=== PATIENT | male | born 1980 | race Caucasian/White ===

== ENCOUNTER 2017-11-14 16:35 | Emergency (ER) | payer OTHER, SELFPAY ==
[2017-11-14 16:37] VITALS: BP 129/91; PULSE 93; RESP 17; TEMP 37.6; O2SAT 96; BMI 27.8
[2017-11-14 16:45] LABS: Bedside Glucose 88 mg/dL (70-110)
[2017-11-14 17:24] LABS: Absolute Lymphocyte Count 2.12 X10^3/ul (0.83-4.51); Absolute Neutrophil Count 6.6 X10^3/uL (2.0-7.7); Basophil# 0.05 X10^3/uL; Basophil% 0.5 % (0-1); Hematocrit 45.8 % (40-54); Hemoglobin 16.4 g/dl (13.0-16.5); Lymphocyte # 2.12 X10^3/ul (4.0); Lymphocyte % 22.1 % (19-41); Mean Corp Hgb Conc 35.8 g/gl (32-36); Mean Corpuscular Hgb 31.8 pg (27.0-32.0); Mean Corpuscular Volume 88.8 fL (80-94); Mean Platelet Vol. 10.8 fl (6.2-12.0); Monocyte# 0.76 X10^3/uL; Monocyte% 7.9 % (0-10); Neutrophil # 6.55 X10^3/uL (2.7-7.7); Neutrophil % 68.3 % (47-70); Platelet Count 265 K/mm3 (150-450); RBC Distribution Width CV 13.2 % (11.6-14.6); RBC Distribution Width SD 42.5 fl (35.1-43.9); Red Blood Count 5.16 M/mm3 (4.6-6.2); White Blood Count 9.6 K/mm3 (4.4-11.0)
[2017-11-14 17:25] LABS: POSITIVE COUNT NO; POSITIVE DIFFERENTIAL NO; POSITIVE MORPHOLOGY NO
[2017-11-14 17:38] LABS: ALB/GLOB Ratio 1.1 RATIO (0.9-2.4); AST(SGOT) 19 U/L (15-37); Alanine Aminotransfer ALT/SGPT 39 U/L (16-61); Alkaline Phosphatase 112 U/L (45-117); Anion Gap 7 (5-15); BUN 13 mg/dL (7-18); BUN/Creat Ratio 12.3 RATIO (10-20); Calcium,Total 8.5 mg/dL (8.5-10.1); Chloride 106 mmol/L (98-107); Creatinine, Serum 1.06 mg/dL (0.70-1.30); EST Glomerular Filtration Rate 83 mL/min (>60); Est Glom Filt Rate - Afr Amer 100 mL/min (>60); Estimated Creatinine Clearance 91.42 ml/min; Globulin 3.5 g/dL (2.2-4.2); Glucose 95 mg/dL (74-106); Potassium 4.1 mmol/L (3.5-5.1); Protein, Total 7.5 g/dL (6.4-8.2); Sodium Level 142 mmol/L (136-145)
--- NOTE | 2017-11-14 17:56 | ED.VISSUMM ---
- ER Visit Summary Date of Service: 11/14/17 Chief Complaint: Per triage patient complains of dizziness and jitteriness. History of Present Illness: The patient is a 37 M who presents with dizziness. Patient's definition of dizziness is feeling jittery and difficulty focusing. This is been going on for weeks to days. He states he has worked out every day consecutively for 2 years. He took this week off. He is on no herbal supplements. He states he is not taking any anabolic steroids. He does admit to 4-5 monster drinks a day. He does report polyuria polydipsia and weight loss. There is no family history of diabetes. He denies headache, visual, ocular auditory symptoms. Denies trouble speech or swallowing. He denies paresthesia, anesthesia motor weakness upper lower extremity's. He denies problems with walking, balance or perception. Physical Examination: Vital signs reveal slight elevation blood pressure. Head is atraumatic normocephalic. Pupils are equal round reactive. Extraocular muscles are intact. Funduscopic exam reveals normal cup-to-disc ratio with no papilledema TMs are pearly white with landmarks noted. Nares patent with no drainage. Posterior pharynx without erythema or exudate. Uvula is midline. There is no dysphonia or dysphasia. Trachea is midline. There is no stridor with auscultation of the neck. Heart is regular without murmur, gallop or rub. S1 and S2 are normal. Lungs are clear to auscultation with good movement of air bilaterally. Patient is alert and oriented ?3. Motor is 5 over 5. Sensory is intact. DTRs are symmetric with no clonus or Babinski sign. Cranial 2 through 12 are intact. Cerebellar testing is normal. Dermatologic exam is normal. Test Results: CBC and CMP are normal. Emergency Department Course and Treatment: To evaluate patient's vague symptoms CBC was obtained to evaluate for anemia, leukemia. CMP was obtained to evaluate electrolytes, kidney function, albumin for nutritional status and alk phos may elevate liver disease or abnormality the bone. Treatment Plan: Referral to PCP for further evaluation and testing Disposition: Discharged to home Impression: Difficulty concentrating and jitteriness of unknown etiology This note was generated with [employer] software. It may contain incorrect words, spelling, and punctuation that were not noted in review of the chart prior to signing ED Disposition - Plan for ED Patient: Disposition: Home or Assisted Living Chief Complaint: Dizziness Instructions: ED Dizziness [facility] Referrals: Brandon Calloway III, MD [Primary Care Provider] - 1 Week
[2017-11-14 18:13] VITALS: PULSE 92; RESP 16; O2SAT 98
== END 2017-11-14 17:00 | disposition home or self-care (01) ==
PROVIDERS: Emergency Provider Emergency Medicine; Family Provider Family Medicine; PCP Family Medicine
DX: R42 Dizziness and giddiness (principal)
CPT/HCPCS: 80053; 82962; 85025; 99283; A4216

== ENCOUNTER 2018-03-10 00:49 | Emergency (ER) | payer OTHER, SELFPAY ==
[2018-03-10 00:50] VITALS: BP 153/91; PULSE 96; RESP 18; TEMP 36.7; O2SAT 99; BMI 28.0
--- NOTE | 2018-03-10 01:03 | RAD_ITS ---
STUDY: X-RAY - RIGHT HAND REASON FOR EXAM: Male, 37 years old. Patient states that he has a knot in the area of the proximal fourth and fifth metacarpals that cuts off blood flow to the ring finger. States that he had an episode in which the ring finger became white and cold. States this happened a couple weeks ago as well. No known injury. TECHNIQUE: 3 view(s) of the hand. COMPARISON: None. FINDINGS: Normal radiocarpal articulation. Normal distal radioulnar joint. Normal visualized carpal bones. Normal carpal articulations Normal carpometacarpal articulation of the thumb. Normal second through fifth carpometacarpal joints. Normal metacarpi. Normal metacarpophalangeal joint of the thumb. Normal interphalangeal joint of the thumb. Normal proximal and distal phalanges of the thumb. Normal metacarpophalangeal joints of the second through fifth fingers. Normal proximal and distal interphalangeal joints of the second through fifth fingers. Normal phalanges of the second through fifth fingers. As seen on lateral view, there is focal posterior soft tissue thickening overlying the metacarpal heads, possibly corresponding to the abnormality described in the patient's complaint. RAD/Hand Min 3 Views IMPRESSION: No demonstrated fracture, dislocation, or destructive osseous lesion. Electronically Signed: Deniz Andrews MD at 1:42 EDT , Service support ,
--- NOTE | 2018-03-10 01:54 | ED.VISSUMM ---
- ER Visit Summary Date of Service: 03/10/18 Chief Complaint: [Right hand pain] History of Present Illness: The patient is a 37 M [presents to the emergency room right hand pain that started 2 weeks ago.] Patient denies any trauma. Patient complains of pain over the hyperthenar eminence and feels like there is grinding over the area and it feels like there is a lump in this area. Patient states that intermittently he has had episodes where his ring finger turns white and he loses blood flow to the digit. Today the symptoms lasted about 45 minutes. Patient has never had issues like this before. Physical Examination: [HEENT-PERRLA, EOMI. Cranial nerves II through XII grossly intact. TMs clear. Mucous membranes moist. No adenopathy. Cardiovascular-regular rate and rhythm without murmur or ectopy Lungs-clear to auscultation, chest wall stable without crepitus or subcu emphysema Abdomen-normoactive bowel sounds, soft, nontender, no rebound or rigidity, no peritoneal signs. Extremities-intact ?4, normal range of motion, normal pulses, atraumatic]. Right hand-patient has tenderness over the hyperthenar eminence of the hand. I do not appreciate any soft tissue swellings or abnormal masses. Patient has normal range of motion of all digits. Patient has normal cap refill of all digits at this time. Test Results: [X-ray of the right hand was read as normal.] Emergency Department Course and Treatment: [This point etiology of his pain is unclear. I suspect the reason for his blanching of the finger and decreased cap refill may be related to arterial spasm.] Treatment Plan: [Patient advised use ibuprofen for discomfort. Patient will be referred to orthopedics for follow-up.] Disposition: [Discharged home in stable condition] Impression: [Right hand pain-etiology uncertain] This note was generated with [employer] dictation software. It may contain incorrect words, spelling, and punctuation that were not noted in review of the chart prior to signing ED Disposition - Plan for ED Patient: Chief Complaint: Upper Extremity Injury Referrals: Care Physician,No Primary [Primary Care Provider] -
--- NOTE | 2018-03-10 01:58 | ED.DCSUM_ITS ---
- ER Visit Summary Date of Service: 03/10/18 Chief Complaint: [Right hand pain] History of Present Illness: The patient is a 37 M [presents to the emergency room right hand pain that started 2 weeks ago.] Patient denies any trauma. Patient complains of pain over the hyperthenar eminence and feels like there is grinding over the area and it feels like there is a lump in this area. Patient states that intermittently he has had episodes where his ring finger turns white and he loses blood flow to the digit. Today the symptoms lasted about 45 minutes. Patient has never had issues like this before. Physical Examination: [HEENT-PERRLA, EOMI. Cranial nerves II through XII grossl y intact. TMs clear. Mucous membranes moist. No adenopathy. Cardiovascular-regular rate and rhythm without murmur or ectopy Lungs-clear to auscultation, chest wall stable without crepitus or subcu emphysema Abdomen-normoactive bowel sounds, soft, nontender, no rebound or rigidity, no peritoneal signs. Extremities-intact ?4, normal range of motion, normal pulses, atraumatic]. Right hand-patient has tenderness over the hyperthenar eminence of the hand. I do not appreciate any soft tissue swellings or abnormal masses. Patient has normal range of motion of all digits. Patient has normal cap refill of all digits at this time. Test Results: [X-ray of the right hand was read as normal.] Emergency Department Course and Treatment: [This point etiology of his pain is unclear. I suspect the reason for his blanching of the finger and decreased cap refill may be related to arterial spasm.] Treatment Plan: [Patient advised use ibuprofen for discomfort. Patient will be referred to orthopedics for follow-up.] Disposition: [Discharged home in stable condition] Impression: [Right hand pain-etiology uncertain] This note was generated with [employer] dictation software. It may contain incorrect words, spelling, and punctuation that were not noted in review of the chart prior to signing ED Disposition - Plan for ED Patient: Chief Complaint: Upper Extremity Injury Referrals: Care Physician,No Primary [Primary Care Provider] -
--- NOTE | 2018-03-10 01:58 | ED.DEP ---
ED Disposition - Plan for ED Patient: Chief Complaint: Upper Extremity Injury Prescriptions: Naproxen [Naprosyn] 500 mg PO BID PRN #20 tab Referrals: Care Physician,No Primary [Primary Care Provider] - Corazon Mancini DO [STAFF PHYSICIAN] - 3-5 Days Additional Instructions: See orthopedic doctor for follow up[. Reason for hand pain is not clear. I suspect you may have arterial spasm causing transient lack of blood flow to your ring finger.
[2018-03-10 02:03] VITALS: BP 155/96; PULSE 75; RESP 17; O2SAT 99
== END 2018-03-10 02:08 | disposition home or self-care (01) ==
LOC: ED 01:10
PROVIDERS: Emergency Provider Emergency Medicine
DX: M79.641 Pain in right hand (principal); Z72.0 Tobacco use
CPT/HCPCS: 73130; 99282

== ENCOUNTER 2018-08-21 07:06 | Emergency (ER) | payer OTHER, SELFPAY ==
[2018-08-21 07:07] VITALS: BP 155/89; PULSE 86; RESP 16; TEMP 36.7; O2SAT 98; BMI 26.6
--- NOTE | 2018-08-21 07:28 | ED.DCSUM_ITS ---
History of Present Illness Chief Complaint: Lower Extremity Injury Detail of Chief Complaint: Rash feet and pallor right ring finger Informant: Patient Onset: Yesterday - Rash that is erythematous and painful, Month(s) - Pallor right finger when cold outside Context: - - Read narrative Timing: Continuous - With regards to the rash, Intermittent - With regards to the right ring finger Quality: Read narrative Location: Read narrative Current Severity: Moderate - Read narrative Maximum Severity: Severe - Read narrative Worsened by: Ring finger exposure to cold, feet read narrative Relieved by: Ring finger warmth, heat nothing Associated Symptoms: Patient does report increased urination and thirst. Narrative: Patient is a 38-year-old healthy male with no significant past medical history who has 2 complaints. First complaint and reason he presents to the emergency department is rash involving his feet. He wears protective boots at work. He states he is never had a problem before. He does report increased thirst and urination. He denies fever, chills night sweats. He denies blurred vision, loss of vision, double vision or change in vision. He denies cardiac respiratory symptoms. He does report that his right ring finger becomes white when it is cold outside. He states the finger returns to normal color after he puts it in warm water/hot water for 20 minutes. He has not seen a physician in years. He is a smoker. He has no symptoms of autoimmune disorder i.e. myalgias, arthralgias, swollen joints and he denies any trouble with swallowing. Prior similar symptoms: Yes - Ray nods phenomenon not rash Recent Illness/Hospitalization: No Past Medical History - Allergies and Home Meds Allergies/Adverse Reactions: Allergies No Known Allergies Allergy (Verified 08/21/18 07:07) Primary Care Physician: Care Physician,No Primary [Primary Care Provider] - Past Medical History: None Surgical History: no surgical history Smoking Status: Current every day smoker Alcohol: Rare Review of Systems General: Denies: Chills, Fever, Malaise, Subjective, Sweats, Weight loss, - Eyes: Denies: Visual changes - left, Visual changes - right, Visual changes - bilaterally, Blurred vision - left, Blurred vision - right, Blurred Vision - bilaterally, Diplopia, -, - ENT: Denies: Rhinorrhea, Sore throat Cardiovascular: Denies: Chest pain, Palpitations Respiratory: Denies: Dyspnea, Cough, Sputum, Dyspnea on exertion Gastrointestinal: Denies: Abdominal pain, Nausea, Vomiting Musculoskeletal: Reports: Extremity Pain. Denies: Myalgias, Arthralgias, Neck pain, Back pain, Swelling Skin: Reports: Rash Neurological: Denies: Weakness, Parasthesia, Numbness Endocrine: Reports: Polyuria, Polydipsia Allergy: Denies: Uticaria Physical Exam Vital Signs/Narrative: Vital Signs Temp Pulse Resp BP Pulse Ox 08/21/18 07:07 98.1 F 86 16 155/89 H 98 General: Well nourished, Well developed, No Acute Distress Head: Normocephalic, Atraumatic Eyes: Perrl, EOMI. Negative for: Pale conjunctiva ENT: Moist mucous membranes, No rhinorrhea Neck: Supple, Nontender, No lymphadenopathy, No JVD Cardiovascular: Regular rate, Regular rhythm Respiratory: No distress, Chest nontender Back: Nontender, Normal Inspection Extremities: No edema, Tenderness - Patient reports tenderness with palpation of rash that is inflamed., - - PT and DP pulses are palpable.Examination of the right ring finger reveals no neurovascular abnormality. Skin: Rash - Patient has evidence of tinea pedis with cellulitis and eczema involving the right and left foot. There is no lymphangitis. There is no popliteal or inguinal lymphadenopathy. Neurological: Alert, Oriented x3, Cranial nerves II-XII grossly intact, Normal Strength, Normal Sensation Psychological: Normal affect, Normal Mood Diagnostic/Tx/Re-eval - Medical Decision Making Since there is a family with diabetes and he reports polydipsia and polyuria will obtain BGT. Patient was informed of the discoloration of his finger and the cold is called ray nods phenomenon. There are multiple causes. He was instructed the im portance to wear gloves when it becomes cold because this may compromise the blood flow to his finger and result in damage or loss of finger. Patient's rash is secondary to tinea pedis with cellulitis and eczema. Will treat with antifungal cream and antibiotic. Will also refer to primary care physician since he does not have one. PTT was normal. Will treat with antifungal cream and antibiotic. Also will refer patient to Dr. Fitzgerald since he does not have a primary care physician. ED Disposition - Plan for ED Patient: Disposition: Home or Assisted Living Diagnosis: Tinea pedis of both feet, Cellulitis of both feet, Raynaud phenomenon Instructions: ED Fungal Infec Athlete Foot, ED Infec Skin Cellulitis, Raynaud's Disease Prescriptions: Smz/Tmp Ds [Bactrim Ds] 1 tab PO BID #14 tab Clotrimazole [Lotrimin AF] 30 gm TP TID #1 cream..g. Cephalexin [Keflex] 500 mg PO 4X/DAY #30 cap Referrals: Care Physician,No Primary [Primary Care Provider] - [facility] [GROUP OF PHYSICIANS] - 2 Days for wound check Devin Fernández MD [STAFF PHYSICIAN] - 1-2 Weeks Additional Instructions: Follow-up with corporate care regarding infection of your feet. Follow-up with Dr. Fitzgerald regarding problem with your right ring finger.
[2018-08-21 07:56] LABS: Bedside Glucose 88 mg/dL (70-110)
== END 2018-08-21 09:03 | disposition home or self-care (01) ==
PROVIDERS: Emergency Provider Emergency Medicine
DX: B35.3 Tinea pedis (principal); L03.116 Cellulitis of left lower limb; L03.115 Cellulitis of right lower limb; I73.00 Raynaud's syndrome without gangrene; F17.200 Nicotine dependence, unspecified, uncomplicated
CPT/HCPCS: 82962; 99281

== ENCOUNTER 2020-05-14 23:17 | Observation (INO) | payer OTHER, SELFPAY ==
[2018-09-03 10:20] VITALS: BMI 26.6
[2020-05-14 23:18] VITALS: BP 182/91; PULSE 84; RESP 20; TEMP 36.6; O2SAT 99; BMI 26.4
--- NOTE | 2020-05-14 23:28 | EKG12_ITS ---
Test Reason : CP Blood Pressure : / mmHG Vent. Rate : 089 BPM Atrial Rate : 089 BPM P-R Int : 136 ms QRS Dur : 086 ms QT Int : 352 ms P-R-T Axes : 027 072 031 degrees QTc Int : 428 ms Normal sinus rhythm with sinus arrhythmia Normal ECG Confirmed by PIPPA CANALES, RIDGE ([id number]), film or videotape editor DIMAS COOPER ([id number]) on 05/16/2020 10:52:43 AM Referred By: Jose Loyd Confirmed By:RIDGE DAS MD
--- NOTE | 2020-05-14 23:29 | ED.VIS.GEN ---
History of Present Illness Chief Complaint: Palpitations Informant: Patient Narrative: 40-year-old male presents the emergency department with the chief complaint of palpitations and feeling dehydrated. He states that he has been evaluated for palpitations several times in the past and is worn a Holter monitor. This was actually in the late . He states he had a stress test at that time which was fine. He states that nothing was ever formally diagnosed. He states it has been a very long time since he felt those symptoms. Since yesterday around 1800 he is felt the palpitations occur more frequently. The patient tells me that the past couple episodes he has felt extreme fatigue following the event. Tells me that the palpitation only last a couple seconds but after effects can be felt for minutes to even a half an hour. The patient reports for the at least the past 3 weeks he feels like he cannot get enough to drink. He notes that he is urinating clear but he is constantly thirsty. He notes a 20 pound weight loss since March. He states this is greatly out of character for him. Past Medical History - Allergies and Home Meds Allergies/Adverse Reactions: Allergies No Known Allergies Allergy (Verified 05/14/20 23:21) Primary Care Physician: Care Physician,No Primary [Primary Care Provider] - Past Medical History: None Surgical History: no surgical history Smoking Status: Current every day smoker Drugs: None Review of Systems General: Reports: Malaise, Weight loss. Denies: Chills, Fever, Sweats Eyes: Denies: Visual changes - bilaterally, Diplopia ENT: Denies: Rhinorrhea, Sore throat Cardiovascular: Reports: Palpitations. Denies: Chest pain, Heart racing Respiratory: Denies: Dyspnea, Cough, Dyspnea on exertion Gastrointestinal: Denies: Abdominal pain, Nausea, Vomiting, Diarrhea, Melena, Hematochezia Genitourinary: Reports: Frequency. Denies: Dysuria, Hematuria Musculoskeletal: Denies: Back pain, Extremity Pain Skin: Denies: Rash, Wounds Neurological: Denies: Headache, Weakness, Numbness Physical Exam Vital Signs/Narrative: Vital Signs Temp Pulse Resp BP Pulse Ox 05/14/20 23:18 97.8 F 84 20 H 182/91 H 99 Inital Vital Signs reviewed: Yes General: Well nourished, Well developed, No Acute Distress Head: Normocephalic, Atraumatic Eyes: Perrl, EOMI ENT: Moist mucous membranes, No rhinorrhea Neck: Supple, Nontender Cardiovascular: Regular rate, Regular rhythm, No murmurs Respiratory: No distress, CTA bilaterally, Chest nontender Abdomen: Soft, Nontender, Nondistended, Normal bowel sounds Back: Nontender, Normal Inspection Extremities: Nontender, No edema Skin: Normal color, No rash Neurological: Alert, Oriented x3, Cranial nerves II-XII grossly intact, Normal Strength, Normal Sensation Psychological: Normal affect, Normal Mood Diagnostic/Tx/Re-eval Clinical Impression(s) from Imaging Studies Chest X-Ray 05/15/20 00:00 IMPRESSION: Normal x-ray examination of the chest. Electronically Signed: Deniz Andrews MD at 1:15 EST , Service support , Chest CTA 05/15/20 00:40 IMPRESSION: Normal CTA chest examination, without a demonstrated pulmonary embolism, aortic aneurysm, or aortic dissection. . No evidence for acute cardiopulmonary pathology. Electronically Signed: Deniz Andrews MD at 2:12 EST , Service support , Laboratory Last Values WBC 13.9 K/mm3 (4.4-11.0) H 05/14/20 23:25 RBC 5.02 M/mm3 (4.6-6.2) 05/14/20 23:25 Hgb 16.3 g/dL (13.0-16.5) 05/14/20 23:25 Hct 46.1 % (40-54) 05/14/20 23:25 MCV 91.8 fL (80-94) 05/14/20 23:25 MCH 32.5 pg (27.0-32.0) H 05/14/20 23:25 MCHC 35.4 g/dL (32-36) 05/14/20 23:25 RDW Std Deviation 44.3 fl (35.1-43.9) H 05/14/20 23:25 RDW Coeff of Zuly 13.4 % (11.6-14.6) 05/14/20 23:25 Plt Count 268 K/mm3 (150-450) 05/14/20 23:25 MPV 11.5 fl (6.2-12.0) 05/14/20 23:25 Immature Gran % (Auto) 0.400 % (0.0-0.9) 05/14/20 23:25 Neut % (Auto) 57.9 % (47-70) 05/14/20 23:25 Lymph % (Auto) 31.5 % (19-41) 05/14/20 23:25 [place] % (Auto) 7.8 % (0-10) 05/14/20 23:25 Eos % (Auto) 1.8 % (0-5) 05/14/20 23:25 Baso % (Auto) 0.6 % (0-1) 05/14/20 23:25 Absolute Neuts (auto) 8.1 X10^3/uL (2.0-7.7) H 05/14/20 23:25 Absolute Lymphs (auto) 4.37 X10^3/uL (0.83-4.51) 05/14/20 23:25 Nucleated RBC % 0 % (0-5) 05/14/20 23:25 Sodium 140 mmol/L (136-145) 05/14/20 23:25 Potassium 3.4 mmol/L (3.5-5.1) L 05/14/20 23:25 Chloride 106 mmol/L (98-107) 05/14/20 23:25 Carbon Dioxide 29.0 mmol/L (21.0-32.0) 05/14/20 23:25 Anion Gap 5 (5-15) 05/14/20 23:25 BUN 11 mg/dL (7-18) 05/14/20 23:25 Creatinine 1.13 mg/dL (0.70-1.30) 05/14/20 23:25 Estim Creat Clear Calc 83.23 ml/min 05/14/20 23:25 Est GFR (MDRD) Af Amer 92 mL/min (>60) 05/14/20 23:25 Est GFR (MDRD) Non-Af 76 mL/min (>60) 05/14/20 23:25 BUN/Creatinine Ratio 9.7 RATIO (10-20) L 05/14/20 23:25 Glucose 88 mg/dL (74-106) 05/14/20 23:25 Calcium 8.4 mg/dL (8.5-10.1) L 05/14/20 23:25 Magnesium 2.2 mg/dL (1.6-2.6) 05/14/20 23:25 Total Bilirubin 0.20 mg/dL (0.20-1.00) 05/14/20 23:25 AST 14 U/L (15-37) L 05/14/20 23:25 ALT 39 U/L (16-61) 05/14/20 23:25 Alkaline Phosphatase 114 U/L (45-117) 05/14/20 23:25 Troponin I 0.145 ng/mL (<0.045) H 05/15/20 02:10 Total Protein 7.4 g/dL (6.4-8.2) 05/14/20 23:25 Albumin 3.9 g/dL (3.2-5.0) 05/14/20 23:25 Globulin 3.5 g/dL (2.2-4.2) 05/14/20 23:25 Albumin/Globulin Ratio 1.1 RATIO (0.9-2.4) 05/14/20 23:25 TSH 2.61 uIU/mL (0.358-3.74) 05/14/20 23:25 Urine Color Yellow (Yellow) 05/15/20 00:25 Urine Clarity Clear (Clear) 05/15/20 00:25 Urine pH 7.0 (5.0 - 8.0) 05/15/20 00:25 Ur Specific [place] 1.010 (1.002-1.030) 05/15/20 00:25 Urine Protein Negative mg/dl (Negative) 05/15/20 00:25 Urine Glucose (UA) Normal mg/dl (Normal) 05/15/20 00:25 Urine Ketones Negative mg/dl (Negative) 05/15/20 00:25 Urine Occult Blood Negative /ul (Negative) 05/15/20 00:25 Urine Nitrite Negative (Negative) 05/15/20 00:25 Urine Bilirubin Negative mg/dL (Negative) 05/15/20 00:25 Urine Urobilinogen Normal mg/dl (Normal) 05/15/20 00:25 Ur Leukocyte Esterase Negative /ul (Negative) 05/15/20 00:25 Urine RBC 0 SEEN /hpf (0-5) 05/15/20 00:25 Urine WBC 0 SEEN /hpf (0-5) 05/15/20 00:25 Ur Squamous Epith Cells 0 SEEN /hpf (0-5) 05/15/20 00:25 Urine Bacteria 0 SEEN /hpf (None Seen) 05/15/20 00:25 Urine Mucus 0 SEEN /hpf (<or=2+) 05/15/20 00:25 Urine Opiates Screen NEGATIVE (< 300 ng/mL) 05/15/20 00:25 Urine Methadone Screen NEGATIVE (< 300 ng/mL) 05/15/20 00:25 Ur Barbiturates Screen NEGATIVE (< 200 ng/mL) 05/15/20 00:25 Ur Phencyclidine Scrn NEGATIVE (< 25 ng/mL) 05/15/20 00:25 Ur Amphetamines Screen NEGATIVE (<1000 ng/mL) 05/15/20 00:25 U Methamphetamin-MDMA NEGATIVE (< 500 ng/mL) 05/15/20 00:25 U Benzodiazepines Scrn NEGATIVE (< 200 ng/mL) 05/15/20 00:25 Urine Cocaine Screen NEGATIVE (< 300 ng/mL) 05/15/20 00:25 U Cannabinoids Screen NEGATIVE (< 50 ng/mL) 05/15/20 00:25 Ur Drug Screen Comment 05/15/20 00:25 POC Glucose 94 mg/dL (70-110) 05/14/20 23:35 - EKG Initial EKG Interpretation: Sinus Rhythm - EKG demonstrates a normal sinus rhythm with sinus arrhythmia at a rate of 89. No concerning features of ACS or ectopy. - Medical Decision Making Osmin troponin is elevated in the indeterminate range. His EKG does not show ACS features. Therefore a CTA of his chest was ordered which was negative. I ordered a second troponin. I do have concerns that the patient minimizes his symptoms. I have a 40-year-old male with elevated troponin in the indeterminate range was a smoker with a slightly suspicious to moderately suspicious story. His blood pressures have been consistently elevated and he could have undiagnosed hypertension. I believe based on his heart score he put him into the higher risk category and the recommendation would be admission for further cardiac evaluation ED Disposition - Plan for ED Patient: Disposition: Acute Care Hospital [facility] Diagnosis: Chest pain, Elevated troponin I level Referrals: Care Physician,No Primary [Primary Care Provider] -
[2020-05-14 23:37] LABS: Absolute Lymphocyte Count 4.37 X10^3/uL (0.83-4.51); Absolute Neutrophil Count 8.1 X10^3/uL (2.0-7.7); Basophil# 0.08 X10^3/uL; Basophil% 0.6 % (0-1); Eosinophil# 0.25 X10^3/uL; Eosinophils% 1.8 % (0-5); Hematocrit 46.1 % (40-54); Hemoglobin 16.3 g/dL (13.0-16.5); Lymphocyte # 4.37 X10^3/ul (4.0); Lymphocyte % 31.5 % (19-41); Mean Corp Hgb Conc 35.4 g/dL (32-36); Mean Corpuscular Hgb 32.5 pg (27.0-32.0); Mean Corpuscular Volume 91.8 fL (80-94); Mean Platelet Vol. 11.5 fl (6.2-12.0); Monocyte# 1.08 X10^3/uL; Monocyte% 7.8 % (0-10); NRBC Flagged by Analyzer 0 % (0-5); Neutrophil # 8.05 X10^3/uL (2.7-7.7); Neutrophil % 57.9 % (47-70); POSITIVE MORPHOLOGY YES; Platelet Count 268 K/mm3 (150-450); RBC Distribution Width CV 13.4 % (11.6-14.6); RBC Distribution Width SD 44.3 fl (35.1-43.9); Red Blood Count 5.02 M/mm3 (4.6-6.2); White Blood Count 13.9 K/mm3 (4.4-11.0)
[2020-05-14 23:38] LABS: Differential Indicated SCAN CRITERIA MET
[2020-05-14 23:40] LABS: Bedside Glucose 94 mg/dL (70-110)
[2020-05-14 23:57] LABS: ALB/GLOB Ratio 1.1 RATIO (0.9-2.4); AST(SGOT) 14 U/L (15-37); Alanine Aminotransfer ALT/SGPT 39 U/L (16-61); Albumin, Serum 3.9 g/dL (3.2-5.0); Alkaline Phosphatase 114 U/L (45-117); Anion Gap 5 (5-15); BUN 11 mg/dL (7-18); BUN/Creat Ratio 9.7 RATIO (10-20); Calcium,Total 8.4 mg/dL (8.5-10.1); Chloride 106 mmol/L (98-107); Creatinine, Serum 1.13 mg/dL (0.70-1.30); EST Glomerular Filtration Rate 76 mL/min (>60); Est Glom Filt Rate - Afr Amer 92 mL/min (>60); Estimated Creatinine Clearance 83.23 ml/min; Globulin 3.5 g/dL (2.2-4.2); Glucose 88 mg/dL (74-106); Magnesium 2.2 mg/dL (1.6-2.6); Potassium 3.4 mmol/L (3.5-5.1); Protein, Total 7.4 g/dL (6.4-8.2); Sodium Level 140 mmol/L (136-145); Thyroid Stim Hormone (TSH) 2.61 uIU/mL (0.358-3.74)
[2020-05-15] VITALS (12 sets, daily range): BP systolic 124–152; BP diastolic 67–111; PULSE 63–84; RESP 15–18; TEMP 36.6–36.7; O2SAT 96–99; BMI 25.9; BMI 26.0
--- NOTE | 2020-05-15 | RAD_ITS ---
STUDY: X-RAY CHEST REASON FOR EXAM: Male, 40 years old. palpitations TECHNIQUE: Single AP portable view of the chest. COMPARISON: None. FINDINGS: There are no confluent pulmonary infiltrates. There is no demonstrated pleural abnormality. Normal size heart. Normal mediastinum and harry. Normal visualized aortic arch and descending thoracic aorta. There are no demonstrated acute fractures or destructive bone lesions. There is no demonstrated abnormality of the visualized soft tissue structures of the upper abdomen. RAD/Chest 1 View (Portable) IMPRESSION: Normal x-ray examination of the chest. Electronically Signed: Deniz Andrews MD at 1:15 EST , Service support ,
[2020-05-15 00:31] LABS: Bacteria 0 SEEN /hpf (None Seen); Mucous, Urine 0 SEEN /hpf (<or=2+); Red Blood Cells-Urine 0 SEEN /hpf (0-5); Squamous Epithelial Cells - UA 0 SEEN /hpf (0-5); White Blood Cells 0 SEEN /hpf (0-5)
[2020-05-15 00:33] LABS: Color, Urine Yellow (Yellow); Glucose, Dipstick Normal (Normal); Ketone-Dipstick Negative (Negative); Leukocyte Esterase-Dipstick Negative /ul (Negative); Nitrite-Dipstick Negative (Negative); Occult Blood-Urine Negative /ul (Negative); Protein-Dipstick Negative (Negative); Urine Bilirubin Dipstick Negative (Negative); Urine Clarity Clear (Clear); Urine Urobilinogen Normal (Normal)
--- NOTE | 2020-05-15 00:40 | CT_ITS ---
STUDY: CTA CHEST REASON FOR EXAM: Male, 40 years old. CP/PALPITATIONS RADIATION DOSAGE (If Supplied By Facility): CTDIvol = ( 10.09 ) mGy, DLP = ( 398.49 ) mGycm TECHNIQUE: The examination was performed with the intravenous administration of IV 100mL Isovue-370. Post-processing of the angiographic images was performed, with multiplanar reformation, but without 3D reconstruction. Individualized dose optimization techniques were used for this CT. COMPARISON: Chest x-ray 05/15/2020. FINDINGS: Normal enhancement of the main pulmonary artery and right and left pulmonary arteries. Normal enhancement of the bilateral peripheral pulmonary arteries. There is no demonstrated pulmonary embolism. Normal thoracic aorta and visualized great vessels. There is no demonstrated aortic dissection. Normal heart and pericardium. Normal mediastinum. Normal hilar regions. Normal visualized trachea and bronchi. The lungs are well expanded. Normal pulmonary parenchyma. Normal pleura. Normal chest wall structures. There are mild degenerative changes of thoracic spine. Normal visualized upper abdomen. CT/CTA Chest W/WO Contrast IMPRESSION: Normal CTA chest examination, without a demonstrated pulmonary embolism, aortic aneurysm, or aortic dissection. . No evidence for acute cardiopulmonary pathology. Electronically Signed: Deniz Andrews MD at 2:12 EST , Service support ,
[2020-05-15 00:50] LABS: Amphetamine Urine VISTA NEGATIVE (<1000 ng/mL); Barbiturate Urine VISTA NEGATIVE (< 200 ng/mL); Benzodiazepine Urine VISTA NEGATIVE (< 200 ng/mL); Cocaine Urine VISTA NEGATIVE (< 300 ng/mL); Ecstacy Urine VISTA NEGATIVE (< 500 ng/mL); Methadone Urine VISTA NEGATIVE (< 300 ng/mL); PCP Urine VISTA NEGATIVE (< 25 ng/mL); THC Urine VISTA NEGATIVE (< 50 ng/mL); Vista UDS pH Range 7
--- NOTE | 2020-05-15 03:28 | HP.PCM_ITS ---
Problem List (1) Palpitation Status: Acute (2) Elevated troponin I level Status: Acute (3) No significant past medical history Status: Acute History of Present Illness Date of Admission: 05/15/20 Chief Complaint: Palpitation. The patient is a 40 year old M with no significant past medical history presented to the emergency room because of palpitation. Her symptoms started the night before last with palpitation, sudden onset, described as fluttering, lasts only for about couple of seconds, followed by profound fatigue and weakness as well as mild dizziness and without aggravating or relieving factors. He denied real chest pain, syncope or presyncope. Yesterday, he went to work and he kept having dose very short episodes of palpitation and heart fluttering followed by weakness and fatigue. He mentioned that back in 1996, he had a stress test done before he went to [employer] and he was informed that everything looked okay at that time. He mentioned that since that time, he has been having those episodes of palpitation but last night, he got concerned and he decided to come to the emergency department. He denied family history of premature CAD. He denied any personal history of diabetes, hypertension or CAD. In the emergency department, blood pressure was slight elevated but improved, other vital signs were stable. Routine blood work was remarkable for leukocytosis which is likely reactive, potassium of 3.4. LFT was unremarkable. TSH and serum magnesium were normal. EKG revealed normal sinus rhythm, normal MT interval, normal QRS, no acute ischemic changes or cardiac arrhythmias. Troponin was 0.159 and second troponin was 0.145. Urine drug screen was negative. Chest x-ray showed no acute findings. CTA chest showed no PE or dissection, no other acute findings. He is being admitted for palpitation and abnormal cardiac enzymes for evaluation. Past Medical History Allergies No Known Allergies Allergy (Verified 05/14/20 23:21) Home Medications: Ambulatory Orders Medication Instructions Recorded NK 09/03/18 Surgical History: no surgical history Psychiatric History: No pertinent psych hx Smoking Status: Current every day smoker Tobacco Use: Cigarettes Alcohol: Rare Drugs: None - *Family History Maternal History Items: No pertinent history, - - No family history of diabetes, hypertension or cardiac disease. Paternal History Items: No pertinent history Review of Systems Constitutional: Reports: Weakness. Denies: Anorexia, Chills, Fever, Fatigue Eyes: Denies: Blurred vision, Double vision, Drainage, Redness HEENT: Denies: Difficulty Hearing, Ear Pain, Eye Pain, Nasal Congestion, Sore Throat Cardiovascular: Reports: Palpitations. Denies: Chest Pain, Chest Pressure, Heaviness, Light Headedness, Syncope Respiratory: Denies: Cough, Pleuritic Pain, Shortness of Breath, Sputum production, Wheezing Gastrointestinal: Denies: Abdominal Pain, Constipation, Diarrhea, Nausea, Vomiting Genitourinary: Denies: Dysuria, Frequency, Hematuria Musculoskeletal: Denies: Arm Pain, Back Pain, Foot Pain Skin: Denies: Dryness, Rash Neurological: Denies: Balance problems, Double vision, Change in Speech, Slurred speech, Confusion, Headaches, Incoordination Psychiatric: Denies: Anxiety, Depression Endocrine: Denies: Change in Body Habitus, Polydipsia, Polyuria VTE Information - Inpt Only VTE Present on Admission: No VTE Mechan Device Prophylaxis: None VTE Pharm Prophylaxis ordered?: No Patient Problems: Active and Suspected Problems (Last Reviewed 09/03/18 @ 10:19 by Maryse Galeas) Elevated troponin I level (Acute) - Physical Exam Vitals/I&O's: Vital Signs Temp Pulse Resp BP Pulse Ox 97.8 F 75 17 142/87 H 97 05/14/20 23:18 05/15/20 03:00 05/15/20 03:00 05/15/20 03:00 05/15/20 03:00 Oxygen Delivery Method Room Air Weight: 173 lb 15.115 oz Body Mass Index (BMI) 26.4 Finger Stick Blood Glucose 88 Intake and Output for Last 24 Hours 05/13/20 05/14/20 05/15/20 23:59 23:59 23:59 Intake Total 500 / 500 Balance 500 / 500 General: Alert, Oriented x3, Cooperative, No apparent distress HEENT: Atraumatic, PERRLA, EOMI, Normocephalic Oral: Moist Mucosa, No Gingival or Mucosal Lesions/ Ulcerations Neck: Supple, No JVD, Negative Carotid Bruits, Trachea Midline, Thyroid Normal Size and Texture Lungs: Normal air movement, No rhonchi, No wheeze, No rales Cardiovascular: Regular rate, Regular Rhythm, Normal S1, Normal S2, No murmurs, PMI Normal Abdomen: Bowel Sounds Present, Soft, Non Tender, Non-Distended, No Hepato- splenomegaly Extremities: No clubbing, No cyanosis, No edema Skin: No rashes, No breakdown Lymphatic: No Cervical, Supraclavicular, or Inguinal Adenopathy Neurological: Cranial nerves II-XII grossly intact, Motor Exam 5/5 strength throughout Psych/Mental Status: Normal Affect, Appropriate, Alert and oriented to time, place, person, mood and affect Laboratory Results 05/14/20 23:25: WBC 13.9 H, RBC 5.02, Hgb 16.3, Hct 46.1, MCV 91.8, MCH 32.5 H, MCHC 35.4, RDW Std Deviation 44.3 H, RDW Coeff of Zuly 13.4, Plt Count 268, MPV 11.5, Immature Gran % (Auto) 0.400, Neut % (Auto) 57.9, Lymph % (Auto) 31.5, [place] % (Auto) 7.8, Eos % (Auto) 1.8, Baso % (Auto) 0.6, Absolute Neuts (auto) 8.1 H, Absolute Lymphs (auto) 4.37, Nucleated RBC % 0 05/14/20 23:25: Sodium 140, Potassium 3.4 L, Chloride 106, Carbon Dioxide 29.0, Anion Gap 5, BUN 11, Creatinine 1.13, Estim Creat Clear Calc 83.23, Est GFR (MDRD) Af Amer 92, Est GFR (MDRD) Non-Af 76, BUN/Creatinine Ratio 9.7 L, Glucose 88, Calcium 8.4 L, Magnesium 2.2, Total Bilirubin 0.20, AST 14 L, ALT 39, Alkaline Phosphatase 114, Troponin I 0.159 H, Total Protein 7.4, Albumin 3.9, Globulin 3.5, Albumin/Globulin Ratio 1.1, TSH 2.61 05/14/20 23:35: POC Glucose 94 05/15/20 00:25: Urine Color Yellow, Urine Clarity Clear, Urine pH 7.0, Ur Specific [place] 1.010, Urine Protein Negative, Urine Glucose (UA) Normal, Urine Ketones Negative, Urine Occult Blood Negative, Urine Nitrite Negative, Urine Bilirubin Negative, Urine Urobilinogen Normal, Ur Leukocyte Esterase Negative, Urine RBC 0 SEEN, Urine WBC 0 SEEN, Ur Squamous Epith Cells 0 SEEN, Urine Bacteria 0 SEEN, Urine Mucus 0 SEEN 05/15/20 00:25: Urine Opiates Screen NEGATIVE, Urine Methadone Screen NEGATIVE, Ur Barbiturates Screen NEGATIVE, Ur Phencyclidine Scrn NEGATIVE, Ur Amphetamines Screen NEGATIVE, U Methamphetamin-MDMA NEGATIVE, U Benzodiazepines Scrn NEGATIVE, Urine Cocaine Screen NEGATIVE, U Cannabinoids Screen NEGATIVE, Ur Drug Screen Comment 05/15/20 02:10: Troponin I 0.145 H Clinical Impression(s) from Imaging Studies Chest X-Ray 05/15/20 00:00 IMPRESSION: Normal x-ray examination of the chest. Electronically Signed: Deniz Andrews MD at 1:15 EST , Service support , Chest CTA 05/15/20 00:40 IMPRESSION: Normal CTA chest examination, without a demonstrated pulmonary embolism, aortic aneurysm, or aortic dissection. . No evidence for acute cardiopulmonary pathology. Electronically Signed: Deniz Andrews MD at 2:12 EST , Service support , Assessment/Plan All Active Problems (Last Reviewed 09/03/18 @ 10:19 by Maryse Galeas) Palpitation (Acute) Elevated troponin I level (Acute) No significant past medical history (Acute) This is a 40 years old male patient presented to the emergency room because of f luttering heart/palpitation and he was found to have abnormal cardiac enzymes and he is being admitted for evaluation. #1 palpitations/fluttering cough/abnormal cardiac enzymes: Patient denied real c hest pain. EKG reviewed, was unremarkable. Troponins borderline elevated. Chest x-ray and CT chest was unremarkable. TSH was normal as well as serum magnesium. Plan: Admit to PCU for observation, cardiac monitoring, serial cardiac enzymes, repeat EKG tomorrow morning, 2D echocardiogram, nuclear stress test tomorrow morning, replace potassium with K. Dur. #2 tobacco abuse: NicoDerm patch. #3 DVT prophylaxis: Low risk patient, no prophylaxis indicated. This note was generated with [employer] dictation software. It may contain incorrect words, spelling, and punctuation that were not noted in checking the note before signing. OBSV E&M: 84920 Initial observation care L2
--- NOTE | 2020-05-15 03:46 | ECHOD_ITS ---
Reason For Study: Arrhythmia Procedure This was a 2D Doppler, Color Flow transthoracic echocardiogram. The exam was of adequate technical quality. Exam performed in department. Left Ventricle Normal LV size. Left ventricular systolic function is normal. The estimated ejection fraction is 65 %. No evidence for diastolic dysfunction. No regional wall motion abnormalities noted. Right Ventricle Normal RV size. Normal systolic function. Atria Normal left atrium. Normal right atrium. No doppler evidence for ASD. Mitral Valve There is no mitral annular calcification. Normal mitral valve. Trivial mitral valve insufficiency. Tricuspid Valve Normal tricuspid valve. Trivial tricuspid valve insufficiency. Aortic Valve Trisinus/trileaflet aortic valve. Normal aortic valve. Pulmonic Valve The pulmonic valve is not well visualized. Great Vessels Normal sized aortic root. Pericardium/Pleural No pericardial effusion. MMode/2D Measurements & Calculations LVIDd: 4.3 cm IVSd: 1.00 cm Ao root diam: 3.6 cm LVIDs: 3.0 cm LVPWd: 1.1 cm LA dimension: 3.4 cm RVDd: 3.1 cm FS: 30.4 % LAV(MOD-bp): 43.1 ml LA A4 area: 14.5 cm2 RA A4 area: 16.7 cm2 LAV(MOD-bp) Indexed: 22.6 ml/m2 LAV(MOD-sp2): 43.0 ml LAV(MOD-sp4): 37.0 ml Time Measurements MV dec time: 0.26 sec Doppler Measurements & Calculations MV E max morteza: 55.3 cm/sec Lat Peak E' Morteza: 11.9 cm/sec Med Peak E' Morteza: 8.3 cm/sec MV A max morteza: 70.9 cm/sec E/E' lat: 4.6 E/E' med: 6.6 MV E/A: 0.78 MV V2 max: 64.9 cm/sec MV P1/2t max morteza: 63.0 cm/sec Ao V2 max: 102.7 cm/sec MV max P.7 mmHg MV P1/2t: 57.3 msec Ao max P.2 mmHg MV V2 mean: 45.8 cm/sec MV dec slope: 322.2 cm/sec2 MV mean P.94 mmHg MVA(P1/2t): 3.8 cm2 MV V2 VTI: 17.5 cm LV V1 max: 97.4 cm/sec PA V2 max: 108.8 cm/sec LV V1 max P.8 mmHg Interpretation Summary Left ventricular systolic function is normal. The estimated ejection fraction is 65 %. Trivial mitral valve insufficiency. Trivial tricuspid valve insufficiency. No evidence for diastolic dysfunction. Ordering Physician: Jose Loyd Referring Physician: No PCP noted Performed By: Pedro Spears RCS
[2020-05-15] MEDS: 0.9% Saline Lock 10 ML Syringe IV (04:10)
--- NOTE | 2020-05-15 04:23 | EKG12_ITS ---
Test Reason : CP Blood Pressure : / mmHG Vent. Rate : 060 BPM Atrial Rate : 060 BPM P-R Int : 144 ms QRS Dur : 090 ms QT Int : 394 ms P-R-T Axes : 005 070 033 degrees QTc Int : 394 ms Normal sinus rhythm with sinus arrhythmia Normal ECG Confirmed by PIPPA CANALES, RIDGE ([id number]), index editor ELAINE NORIEGA ([id number]) on 05/17/2020 9:04:53 AM Referred By: Jose Loyd Confirmed By:RIDGE DAS MD
--- NOTE | 2020-05-15 10:20 | STRESSREP ---
Stress Test Report Date: Procedure: Exercise tolerance test/imaging study Indications: Palpitations; indeterminate troponin I level Consent: Per the patient Procedure: The patient exercised on a Speedy protocol for 14 minutes completing Stage IV and 2 minutes of Stage V achieving a peak heart rate of 181 bpm (101% predicted maximal heart rate) with a peak blood pressure 160/70 mmHg and a peak MET capacity of 17 METs. The baseline ECG demonstrated normal sinus rhythm. The peak exercise ECG demonstrated no obvious ECG changes. There was a rare ventricular couplet during exercise. The functional capacity was considered good. There was no complaint of chest discomfort during exercise or recovery. The examination was discontinued secondary to dyspnea. Impression: 1. Technically adequate (percent predicted maximal heart rate greater than 85%) exercise tolerance test 2. Peak exercise ECG no obvious ECG changes 3. There was a rare ventricular couplet during exercise 4. Nuclear images pending Myocardial perfusion imaging study: Technique: The patient was injected with 12.0 mCi of technetium 99m Cardiolite and subsequently rest SPECT Cardiolite nuclear imaging was obtained in the horizontal long, vertical long, and short axis views. The patient exercised on a Speedy protocol for 14 minutes completing Stage IV and 2 minutes of Stage V achieving a peak heart rate of 181 bpm (101% predicted maximal heart rate) with a peak blood pressure 160/70 mmHg and a peak MET capacity of 17 METs. The patient was injected with 33.7 mCi of technetium 99m Cardiolite and subsequently stress SPECT Cardiolite nuclear imaging was obtained in the horizontal long, vertical long, and short axis views. A gated Cardiolite study at peak stress was obtained. Interpretation: Rest and stress SPECT Cardiolite nuclear imaging status post realignment, normalization, and attenuation correction, demonstrates the appearance of relative uniform tracer uptake and myocardial perfusion appearing within normal limits. There is end systolic thickening and brightening. The gated Cardiolite study demonstrates myocardial thickening and inward wall motion. The reported LVEF is 62%. Impression: 1. Rest and stress SPECT Cardiolite nuclear imaging demonstrate relative uniform tracer uptake and myocardial perfusion appearing within normal limits. 2. The gated Cardiolite study reports an LVEF of 62%. This note was generated with [employer] software. It may contain incorrect words, spelling, and punctuation that were not noted in checking the note before signing.
--- NOTE | 2020-05-15 15:06 | DCINST_ITS ---
- Discharge Diagnoses Current Active Problems: Current Active and Chronic Problems (Last Reviewed 09/03/18 @ 10:19 by Maryse Galeas) Chest pain (Acute) Palpitation (Acute) Elevated troponin I level (Acute) No significant past medical history (Acute) You will use the following diet at home:: No restrictions Your food should be the consistency of: Regular Your liquids should be the consistency of: Regular/Thin Discharge Activity: Return to Normal Activity Weight Bearing Status: Full weight bearing Allergies/Adverse Reactions: Allergies No Known Allergies Allergy (Verified 05/14/20 23:21) Medications to take at Discharge NK 09/03/18 Primary Care Physician: Care Physician,No Primary [Primary Care Provider] - Test Results: Test results from this visit will be discussed in further detail at your follow- up appointment, if applicable. Please Follow Up With: Scott Cisse MD (cardiology) When: call [phone] for appointment to discuss possible loop recorder
--- NOTE | 2020-05-20 08:38 | PCM.DC.SUM ---
Discharge Date and Diagnosis - Problem List Patient Problems: Active and Suspected Problems (Last Reviewed 09/03/18 @ 10:19 by Maryse Galeas) Chest pain (Acute) Palpitation (Acute) Elevated troponin I level (Acute) No significant past medical history (Acute) Date of Admission: 05/15/20 Date of Discharge: 05/15/20 - Primary Discharge Diagnosis Acute Problems: Active Problems (Last Reviewed 09/03/18 @ 10:19 by Maryse Galeas) Musculoskeletal chest pain #2 palpitations-etiology unclear #3 Minor troponin elevations-not significant-etiology unknown Hospital Course and Treatment Operations: None Procedures: Nuclear stress test Summary of Care Provided: The patient is a 40 year old M who was seen in the emergency room at [facility] with chief complaint of precordial chest discomfort and palpitations. Patient had a past history of palpitations before, the etiology of these palpitations are unknown and they were not able to be confirmed on testing in the past. Work-up in the emergency room included an EKG which showed no acute ischemic changes, chest x-ray was unremarkable, troponin was slightly elevated in the intermediate range. Patient was admitted to PCU, cardiac enzymes were cycled and these remained in the intermediate range without rising-this was not felt to be significant and he underwent an echocardiogram which was normal and a nuclear stress test which showed no evidence of reversible ischemic changes. On 05/15/2020, patient was seen and examined and felt to be stable for discharge home: On examination he appeared in good health and spirits. Vital signs as documented. Skin warm and dry and without overt rashes. Neck without JVD, neck was supple, trachea midline, thyroid was normal. Lungs clear bilaterally, normal air movement was noted. Heart exam notable for regular rhythm, normal sounds and absence of murmurs, rubs or gallops. Abdomen unremarkable and without evidence of organomegaly, masses, or abdominal aortic enlargement. Bowel sounds are present, abdomen is not distended. Extremities nonedematous, no cyanosis was noted, no clubbing was noted. Neuro: Cranial nerves II through XII are grossly intact, no focal motor deficits were noted, sensation to light touch and pinprick intact, motor exam 5/5 throughout. Psych: Patient is alert and oriented x3, he does not appear anxious or depressed, he does not appear agitated. Patient was instructed to follow-up as an outpatient and consider seeing cardiology for possible loop recorder insertion. Patient Problems: Active and Suspected Problems (Last Reviewed 09/03/18 @ 10:19 by Maryse Galeas) Chest pain (Acute) Palpitation (Acute) Elevated troponin I level (Acute) No significant past medical history (Acute) - Physical Exam Vitals/I&O's: Vital Signs Temp Pulse Resp BP Pulse Ox 97.8 F 73 18 124/75 H 97 05/15/20 11:56 05/15/20 11:56 05/15/20 11:56 05/15/20 11:56 05/15/20 11:56 Oxygen Delivery Method Room Air Weight: 77.5 kg Body Mass Index (BMI) 25.9 Finger Stick Blood Glucose 88 Discharge Activity: Return to Normal Activity Weight Bearing Status: Full weight bearing Home Medications: Medications to take at Discharge NK 09/03/18 Primary Care Physician: Care Physician,No Primary [Primary Care Provider] - Please Follow Up With: Scott Cisse MD (cardiology) When: call [phone] for appointment to discuss possible loop recorder Disposition: Home Minutes spent on discharge:: 30 Patient Condition:: Stable Medical Necessity - Tobacco Use Smoking Status: Current every day smoker Tobacco Use: Cigarettes Meaningful Use Info Meaningful Use Diagnoses (Choose all that apply): None applicable OBSV E&M: 69617 Observation care discharge
== END 2020-05-15 15:08 | disposition home or self-care (01) ==
LOC: ED 05-15 02:43 → PCU 05-15 03:34
PROVIDERS: Admitting Provider Hospitalist; Emergency Provider Emergency Medicine; Referring Provider Hospitalist; Visit Provider Internal Medicine
DX: R07.89 Other chest pain (principal); R00.2 Palpitations; R79.89 Other specified abnormal findings of blood chemistry; R63.4 Abnormal weight loss; F17.210 Nicotine dependence, cigarettes, uncomplicated
CPT/HCPCS: 36415; 71045; 71275; 78452; 80053; 80307; 81001; 82962; 83735; 84443; 84484; 85025; 93005; 93017; 93306; 96360; 96361; 99218; 99285; 99406; A9500; J7030; J7040; Q9967; A4216; G0378; J2785